=== PATIENT | female | born 1970 | race Caucasian/White ===

== ENCOUNTER → 2021-10-31 11:37 | Outpatient (CLI) | payer OTHER, SELFPAY ==
--- NOTE | ~2021-10-31 | US_ITS ---
EXAMINATION: US pelvic complete w TV DATE: 10/31/2021 12:13 INDICATION: Endometrial hyperplasia TECHNIQUE: Multiple transabdominal and endovaginal sonographic images of the pelvis were obtained. COMPARISON: None. FINDINGS: The uterus measures 7.1 x 2.8 x 3.6 cm. The endometrial complex measures 2 mm. The ovaries are not visualized however no adnexal abnormality is seen. There is no free fluid in the pelvis. IMPRESSION: 1. Normal endometrial thickness. Reviewed, dictated and finalized at location A.
== END ==
PROVIDERS: Visit Provider Nurse Practitioner Family
DX: N85.00 Endometrial hyperplasia, unspecified (principal); N95.1 Menopausal and female climacteric states
CPT/HCPCS: 76830; 76856